=== PATIENT | male | born 1975 | race Caucasian/White ===

== ENCOUNTER 2024-04-17 10:04 | Emergency (ER) | payer BC, SELFPAY ==
--- NOTE | ~2024-04-17 | CT_ITS ---
EXAMINATION: CT lumbar spine wo con DATE: 04/17/2024 10:40 INDICATION: Lumbago. Left-sided sciatica. TECHNIQUE: Computed tomography (CT) of the lumbar spine was performed without intravenous contrast. A utomated exposure control and iterative reconstruction technique were employed. The dose-length produ ct was 742.75 mGy-cm. COMPARISON: None FINDINGS: There is 3 degrees levocurvature of lumbar spine. There are chronic bilateral L2 pars defec ts. There is mild chronic anterior wedging of T11 and T12 vertebral bodies. There are Schmorl's nodes at multiple levels. There is moderately decreased disc height at L2-L3. The following disc levels ar e specifically discussed: L1-L2: The disc does not extend beyond the endplate margin. There is mild right and moderate left fac et joint osteoarthritis. There is no neural foraminal stenosis. There is no central canal stenosis. L2-L3: The disc is bulging. There is mild bilateral facet joint osteoarthritis. There is moderate matt ateral neural foraminal stenosis. There is mild central canal stenosis. L3-L4: The disc does not extend beyond the endplate margin. There is mild bilateral facet joint osteo arthritis. There is no neural foraminal stenosis. There is no central canal stenosis. L4-L5: The disc is bulging. There is mild bilateral facet joint osteoarthritis. There is mild bilater al neural foraminal stenosis. There is mild central canal stenosis. L5-S1: The disc is bulging. There is mild bilateral facet joint osteoarthritis. There is mild bilater al neural foraminal stenosis. There is mild central canal stenosis. IMPRESSION: 1. Moderate lumbar spondylosis. 2. Chronic bilateral L2 pars defects. Reviewed, dictated and finalized at location A. RE CUTTER
--- NOTE | 2024-04-17 10:10 | ED.BACK ---
HPI - Back Pain/Injury General Chief Complaint: Back Pain/Injury Stated Complaint: back pain Time Seen by Provider: 04/17/24 10:10 Source: patient Mode of arrival: wheelchair Limitations: no limitations History of Present Illness HPI Narrative: 48-year-old male with a history of back surgeries/ diskectomy x2 in 2018presents to the ED with the -- low back pain radiating down his left lower extremity. He has had chronic back pain but this got worse since 04/02/2024. Is scheduled to have an MRI on May 06, 2024. no bladder or bowel involvement. -- Paresthesias of his left lower extremity. -- Patient is unable to ambulate MD elicited complaint: back pain Pertinent past history: prior back pain Onset (ago): day(s) ( 15 days) Timing: intermittent Severity: severe Similar Symptoms Previously: Yes Quality: aching Location: lumbar spine Radiation: left upper leg and left leg below the knee Exacerbating factors: movement Relieving factors: immobilization Context: while lifting, turning/twisting and bending Associated symptoms: denies other symptoms, numbness and difficulty walking Work related injury: No Related Data Allergies Allergy/AdvReac Type Severity Reaction Status Date / Time tramadol AdvReac Mild Nausea Verified 04/17/24 10:13 Review of Systems Review of Systems: All systems reviewed & are unremarkable except as noted in HPI and below Constitutional: Constitutional: Reports as per HPI and Reports no additional constitutional complaints Eyes: Eyes: Reports as per HPI and Reports no additional eye complaints ENT: Reports system reviewed and no additional complaints, except as documented and Reports as per HPI Cardiovascular: Cardiovascular: Reports as per HPI and Reports no additional cardiovascular complaints Respiratory: Respiratory: Reports as per HPI and Reports no additional respiratory complaints Gastrointestinal: Gastrointestinal: Reports as per HPI and Reports no additional gastrointestinal complaints Genitourinary: Genitourinary: Reports no additional male genitourinary complaints and Reports as per HPI Musculoskeletal: Musculoskeletal: Reports no additional musculoskeletal complaints, Reports as per HPI and Reports myalgias Integumentary/Breasts: Skin/Breast: Reports system reviewed and no additional complaints, except as docu and Reports as per HPI Neurologic: Reports system reviewed and no additional complaints, except as documented and Reports as per HPI Psychiatric: Psychiatric: Reports no additional psychiatric complaints and Reports as per HPI Endocrine: Endocrine: Reports no additional endocrine complaints and Reports as per HPI Hematologic/Lymphatic: Hematologic/Lymphatic: Reports no additional hematologic/lymphatic complaints and Reports as per HPI Allergic/Immunologic: Allergic/Immunologic: Reports no additional allergic/immunologic complaints and Reports as per HPI [facility] Past Medical History Medical History Chronic low back pain Surgical History Surgical History Previous back surgery Exam Narrative: afebrile Const: General: ill appearing Orientation/consciousness: patient oriented x3 Limitations: no limitations HENMT: Head: normal to inspection Ears: external ears normal Face/Nose/Sinus: Normal external nose present Face and sinus: normal facial exam Mouth: Yes Normal oral and palatal mucosa present Throat: posterior oropharynx normal Eyes: Conjunctivae: conjunctivae normal Pupils: Equal, round and reactive pupils present EOM: EOMs intact bilaterally Direct Ophthalmoscopy: no photophobia Neck: Neck: normal visual inspection and no lymphadenopathy Chest: Chest palpation & inspection: normal inspection of the chest Resp: Effort & Inspection: normal respiratory effort Auscultation: clear to auscultation bilaterally Cardio: Rate: regular rate Rhythm: regular rhythm GI: Auscultation: normal bowel sounds Other: no tenderness/ rigidity /rebound. : General: Yes no CVA tenderness Back/Spine/Pelvis: Back: no CVA tenderness Other: No lumbar spinal tenderness. Straight-leg raising test is positive on the left side. No sensory loss unable to elicit deep tendon reflexes on the left lower extremity. Skin: General skin exam: normal color Rashes: no rashes Wounds: no wounds Neuro: General: patient oriented x3, moves all extremities, no meningeal signs, no focal motor deficits and CN's II-XI intact bilaterally Cranial nerves: Yes Nystagmus not present Speech: normal speech Extrem: General: normal to inspection and no clubbing, cyanosis or edema Psych: Mental Status: mental status grossly normal Affect: normal affect Attitude: cooperative Course Course Emergency Course: Worsening of chronic low back pain-- patient had a CT of the lumbar spine which revealed moderate lumbar spondylosis. The patient has Schmorls nodes at multiple levels with decrease in height of L2/L3. Patient is also noted to have wedging of T11 and L2. Minimal spinal/foraminal stenosis. Bilateral L2 pars defect Vital Signs Vital signs: Vital Signs Temperature 36.9 C 04/17/24 10:13 Pulse Rate 80 04/17/24 10:13 Respiratory Rate 18 04/17/24 10:13 Blood Pressure 132/97 H 04/17/24 10:13 Pulse Oximetry 99 04/17/24 10:13 Oxygen Delivery Room Air 04/17/24 10:13 Temperature 36.9 C 04/17/24 10:13 Pulse Rate 80 04/17/24 10:13 Respiratory Rate 18 04/17/24 10:13 Blood Pressure 132/97 H 04/17/24 10:13 Pulse Oximetry 99 04/17/24 10:13 Oxygen Delivery Room Air 04/17/24 10:13 MDM - Back Pain/Injury MDM Narrative Medical decision making narrative: chronic low back pain lumbar spondylosis Differential Diagnosis Differential diagnosis: Likely lumbar radiculopathy, sciatica and strain of lumbar region Lab Data Attestation: I reviewed the patient's lab results. Discharge Plan Discharge Clinical Impression: Chronic low back pain, Lumbar radiculopathy Patient Disposition: Home, Self-Care Condition: Stable Instructions: Antibiotic Form, Chronic Back Pain (DC) Additional Instructions: follow-up with your back surgeon Patient Language: Palestinian Prescriptions: New hydrocodone-acetaminophen 5-325 mg tablet 1 tablet PO Q8H PRN (Reason: pain) Qty: 10 0RF Follow-up/Referrals: Jay Jeffrey M.D. [Primary Care Provider] - Time of Disposition: 11:05
[2024-04-17 10:13] VITALS: BP 132/97; PULSE 80; RESP 18; TEMP 36.9; O2SAT 99
[2024-04-17] MEDS: ONDANSETRON HCL ODT 4 MG TABLET PO (10:25)
[2024-04-17] MEDS: HYDROmorphone HCL INJ (*CRX) 2 MG/ML VIAL 1 MG IM (10:26)
[2024-04-17 11:10] VITALS: BP 128/88; PULSE 72; RESP 18; TEMP 36.7; O2SAT 99
--- OUTSIDE RECORDS SUMMARY | 2024-04-17 11:35 | XMS_ITS | Clinical Summary ---
Author Organization [facility] Address [facility] [place] [address] Care Team Providers Care Farm Facility Manager Name Role Phone Jay Jeffrey MD Primary Care Provider Flores Sweeney MD Unavailable [phone] Allergies Active Allergy Reactions Criticality Noted Date Comments Lisinopril-Hydrochlorothiazide Cough 07/31 Tramadol Nausea Only 09/14/2017 Medications sertraline (ZOLOFT) 50 MG tablet Take 100 mg by mouth daily. Active candesartan 32 MG tabletIndications:H ypertension Take 32 mg by mouth daily. Indications: High Blood Pressure Disorder Active metFORMIN 500 MG tablet 500 mg 2 (two) times daily with meals. 0 Active atorvastatin (LIPITOR) 20 MG tablet Take 20 mg by mouth daily. Active pantoprazole EC (PROTONIX) 40 MG tablet Take 40 mg by mouth daily. Active ondansetron (ZOFRAN-ODT) 4 MG disintegrating tablet Take 1 tablet (4 mg total) by mouth every 8 (eight) hours as needed for Nausea. 20 tablet 4 Active Active Problems Problem Noted Date Diagnosed Date Chest pain 01/19/2022 Left leg pain 09/18/2020 Left foot pain 09/18/2020 Exercise-induced leg fatigue 09/18/2020 Torticollis, acquired 01/05/2018 Shoulder pain 01/03/2018 Resolved Problems Problem Noted Date Diagnosed Date Resolved Date Encounter for preventive health examination 09/13/2017 11/15/2019 Encounters Date Type Department Care Team Description 04/11/2024 11:24 AM CORE STACKER - 04/11/2024 11:59 PM CORE STACKER Hospital Encounter [facility] [address] [place] [address] aHrshal Brar, VIRGILIO Discharge Disposition: Home or Self Care (Routine Discharge) 04/11/2024 Travel from Last 3 Months Immunizations Name Administration Dates Next Due Dtp 09/22/1982,07/24/1979,02/08/1978 ,1977,1977 MMR 10/10/1991,01/26/1979 Opv 09/22/1982,07/24/1979,02/08/1978 ,1977,1977 Td 10/10/1991 Tdap (Generic) 10/08/2018 Family History Medical History Relation Comments Cancer Father Diabetes Father Heart Disease Father Heart Disease Mother Relation Status Comments Father Mother Social History Tobacco Use Types Packs/Day Years Used Date Smoking Tobacco: Former Smokeless Tobacco: Never Tobacco Cessation:Counseling Given: Not Answered Comments:quit 15 yrs ago Alcohol Use Standard Drinks/Week Comments Yes 0 (1 standard drink = 0.6 oz pur e alcohol) occasionally Sex and Gender Information Value Date Recorded Sex Assigned at Male 04/11/2024 11:22 AM CORE STACKER Legal Sex Male 8:57 PM CORE STACKER Gender Identity Not on file Sexual Orientation Not on file Last Filed Vital Signs Vital Sign Reading Time Taken Comments Blood Pressure 119/74 05/21/2023 2:30 PM CDT Pulse 62 05/21/2023 1:50 PM CDT Temperature 36.3 C (97.4 F) 05/21/2023 11:05 AM CDT Respiratory Rate 18 05/21/2023 1:50 PM CDT Oxygen Saturation 100% 05/21/2023 2:30 PM CDT Inhaled Oxygen Concentration - - Weight 92.4 kg (203 lb 12.8 oz) 024 11:05 AM CDT Height 182.9 cm (6') 05/21/2023 11:05 AM CDT Body Mass Index 27.64 05/21/2023 11:05 AM CDT Plan of Treatment Upcoming Encounters Date Type Department Care Team (Late st Contact Info) Description 04/23/2024 11:15 AM CORE STACKER Appointment [facility] [address] [place] [address] Carlito Melgar, PT [address] [place] [address] Health Maintenance Due Date Last Done Comments Colorectal Cancer Screening Colonoscopy (10 Years) 1977 Annual Physical 1980 Hepatitis C 07/21/1995 Hepatitis B Vaccines (1 of 3 - 19+ 3-dose series) 1996 COVID-19 Vaccine ( - 2023- season) 2023 Influenza Adult (#1) 2023 DTaP, Tdap and Td Vaccines (3 - Td or Tdap) 10/08/2028 10/08/2018, 10/10/1991, 09/22/1982, Additional history exists Meningococcal B Vaccine Aged Out No l onger eligible based on patient's age to complete this topic Meningococcal Vaccine Aged Out No joseph tricia eligible based on patient's age to complete this topic Pneumococcal Vaccine: Pediatrics (0 to 5 Years) and At-Risk Patients (6 to 64 Years) Aged Out No longer eligible based on patient's age to complete this topic RSV Immunizations Under 20 Months Aged Out No longer eligible based on patient's age to complete this topic Medical Devices Implanted Type Area Music Adapter Device Identifier Shelf Expiration Date Model / Serial / Lot 2.4mm/2.7mm Va Lcp First Mtp Fusion Plate Implanted:Qty: 1 on 10/15/2019 by Otf Kim DPM at [facility] Left: Foot SYNTHES .231 / / NA Screw Synthes 2.7 Va Locking S/Tap T8 14mm - [id number] Implanted:Qty: 2 on 10/15/2019 by Otf Kim DPM at [facility] Left: Foot SYNTHES .014 / / NA Screw Synthes 2.7 Va Locking S/Tap T8 18mm - [id number] Implanted:Qty: 3 on 10/15/2019 by Otf Kim DPM at [facility] Left: Foot SYNTHES .018 / / NA Screw Synthes 2.7 Va Locking S/Tap T8 12mm - [id number] Implanted:Qty: 1 on 10/15/2019 by Otf Kim DPM at [facility] Left: Foot SYNTHES ..012 / / NA Screw Synthes 2.7 Cortical Self Tap 26mm - [id number] Implanted:Qty: 1 on 10/15/2019 by Otf Kim DPM at [facility] Left: Foot SYNTHES 202.886 / / NA Explanted Type Area Music Adapter Device Identifier Shelf Expiration Date Model / Serial / Lot Wire Synthes 1.6 Compression 15mm X 150mm - [id number] Explanted:Qty: 1 on 10/15/2019 at [facility] Left: Foot SYNTHES .211.415 / / NA Wire Synthes 1.6 Compression 20mm X 150mm - [id number] Explanted:Qty: 1 on 10/15/2019 at [facility] Left: Foot SYNTHES .211.420 / / NA Drill Bit Synthes 2.0 Qc 140mm - [id number] Explanted:Qty: 1 on 10/15/2019 by Otf Kim DPM at [facility] Left: Foot SYNTHES 323.062 / / NA Procedures Procedure Name Priority Date/Time Associated Diagnosis Comments XR THOR SPINE+SWIMMERS Routine 04/11/2024 12:00 PM CORE STACKER Sciatica XR SI JOINTS Routine 04/11/2024 12:00 PM CORE STACKER Sciatica XR LUMB SPINE 3V Routine 04/11/2024 12:0 0 PM CORE STACKER Sciatica from Last 3 Months Results * XR THOR SPINE+SWIMMERS (04/11/2024 12:00 PM CORE STACKER) Anatomical Region Laterality Modality Spine Radiographic Skyla ging 04/12/2024 8:58 AM CORE STACKER Impressions 04/12/2024 8:59 AM CORE STACKER IMPRESSION: No acute findings. Minimal spondylosis. Ordered By: HARSHAL BRAR Interpreted By: Eric Blankenship MD, 04/12/2024 8:58 AM Narrative 04/12/2024 8:59 AM CORE STACKER [address] [place] [address] Examination: Thoracic spine Exam time: 1130 hours. Clinical history: Pain. Comparison: Two-view chest, 05/22/2023. Technique: AP, lateral and swimmer's views. Findings: There is no fracture or dislocation. Vertebral body height and alignment are satisfactory. The pedicles and spinous processes appear intact. Minor paravertebral osteophyte formation is noted. The paraspinous soft tissues are unremarkable. Granulomatous scarring in the thorax is again evident. Procedure Note Eric Blankenship MD - 04/12/[address] [place] [address] Examination: Thoracic spine Exam time: 1130 hours. Clinical history: Pain. Comparison: Two-view chest, 05/22/2023. Technique: AP, lateral and swimmer's views. Findings: There is no fracture or dislocation. Vertebral body height andalignment are satisfactory. The pedicles and spinous processes appearintact. Minor paravertebral osteophyte formation is noted. The paraspinoussoft tissues are unremarkable. Granulomatous scarring in the thorax isagain evident. IMPRESSION: No acute findings. Minimal spondylosis. Ordered By: HARSHAL BRAR Interpreted By: Eric Blankenship MD, 04/12/2024 8:58 AM Harshal Brar CHANNEL LIP STIFFENER [facility] Final Result * XR SI JOINTS (04/11/2024 12:00 PM CORE STACKER) Anatomical Region Laterality Modality Pelvis Radiographic Skyla ging 04/12/2024 9:12 AM CORE STACKER Impressions 04/12/2024 9:14 AM CORE STACKER IMPRESSION: No acute findings. Degenerative changes in the hips. Ordered By: HARSHAL BRAR Interpreted By: Eric Blankenship MD, 04/12/2024 9:12 AM Narrative 04/12/2024 9:14 AM CORE STACKER [address] [place] [address] Examination: SI joints. Exam time: 1138 hours. Clinical history: Pain. Sciatica. Comparison: None. Technique: AP and bilateral oblique views. Findings: No fracture or bony destructive process is identified. The SI joints appear intact and symmetric. The pubic symphysis appears intact. There are relatively symmetric [id number]-[id number] degenerative changes in the hips manifested by joint space narrowing and acetabular osteophyte formation. No other significant bone or joint abnormality is noted. No acute soft tissue abnormality. Procedure Note Eric Blankenship MD - 04/12/[address] [place] [address] Examination: SI joints. Exam time: 1138 hours. Clinical history: Pain. Sciatica. Comparison: None. Technique: AP and bilateral oblique views. Findings: No fracture or bony destructive process is identified. The SIjoints appear intact and symmetric. The pubic symphysis appears intact.There are relatively symmetric [id number]-[id number] degenerative changes inthe hips manifested by joint space narrowing and acetabular osteophyteformation. No other significant bone or joint abnormality is noted. Noacute soft tissue abnormality. IMPRESSION: No acute findings. Degenerative changes in the hips. Ordered By: HARSHAL BRAR Interpreted By: Eric Blankenship MD, 04/12/2024 9:12 AM Harshal Brar CHANNEL LIP ST[employer] Final Result * XR LUMB SPINE 3V (04/11/2024 12:00 PM CORE STACKER) Anatomical Region Laterality Modality Spine Radiographic Skyla ging 04/12/2024 9:09 AM CORE STACKER Impressions 04/12/2024 9:11 AM CORE STACKER IMPRESSION: No acute findings. Essentially stable spondylosis as described. Ordered By: HARSHAL BRAR Interpreted By: Eric Blankenship MD, 04/12/2024 9:09 AM Narrative 04/12/2024 9:11 AM CORE STACKER [address] [place] [address] Examination: Lumbar spine Exam time: 1131 hours. Clinical history: Low back pain with sciatica. Comparison: CT of the abdomen and pelvis, 03/29/2023. Technique: Upright AP, lateral and spot lateral views. Findings: There is no fracture or dislocation. The vertebral bodies are maintained normally in height. There is minimal anterolisthesis at L2-3 with weightbearing. Alignment is otherwise satisfactory. Allowing for the different modalities, there is stable disc space narrowing at L2-3 and L5-S1. The other intervertebral disc spaces are maintained normally in height. Mild paravertebral osteophyte formation is again evident, primarily at L2-3. Vacuum disc phenomenon at L2-3 again evident. Atherosclerotic calcification of the aorta is noted. The paraspinous soft tissues are otherwise unremarkable. Procedure Note Eric Blankenship MD - 04/12/[address] [place] [address] Examination: Lumbar spine Exam time: 1131 hours. Clinical history: Low back pain with sciatica. Comparison: CT of the abdomen and pelvis, 03/29/2023. Technique: Upright AP, lateral and spot lateral views. Findings: There is no fracture or dislocation. The vertebral bodies aremaintained normally in height. There is minimal anterolisthesis at L2-3with weightbearing. Alignment is otherwise satisfactory. Allowing for thedifferent modalities, there is stable disc space narrowing at L2-3 andL5-S1. The other intervertebral disc spaces are maintained normally inheight. Mild paravertebral osteophyte formation is again evident,primarily at L2-3. Vacuum disc phenomenon at L2-3 again evident.Atherosclerotic calcification of the aorta is noted. The paraspinous softtissues are otherwise unremarkable. IMPRESSION: No acute findings. Essentially stable spondylosis as described. Ordered By: HARSHAL BRAR Interpreted By: Eric Blankenship MD, 04/12/2024 9:09 AM Harshal Brar CH[employer] LIP ST[employer] Final Result from Last 3 Months Insurance [address] [place] [id number] [facility] [employer] [employer] Care Teams Farm Facility Manager Relationship Specialty Start Date End Date Jay Jeffrey MD [address] [place] [address] PCP - General FAMILY PRACTICE 03/06/19 [place] [address] Consulting Physician INTERVENTIONAL CARDIOLOGY 01/18/22
--- OUTSIDE RECORDS SUMMARY | 2024-04-17 11:35 | XMS_ITS | Encounter Summary ---
Author Organization [facility] Address [facility] [place] [address] Care Team Providers Care Sports Book Server Name Role Phone Jay Jeffrey MD Primary Care Provider Flores Sweeney MD Unavailable [phone] Encounter Details Date Type Department Care Team (Late st Contact Info) Description 02/10/2022 Hospital Orders Only [facility] Housekeeping Attendant Pre/Post [address] [place] [address] Flores Sweeney MD [address] [place] [address] Social History Tobacco Use Types Packs/Day Years Used Date Smoking Tobacco: Former Smokeless Tobacco: Never Comments:quit 15 yrs ago Alcohol Use Standard Drinks/Week Comments Yes 0 (1 standard drink = 0.6 oz pur e alcohol) occasionally Sex and Gender Information Value Date Recorded Sex Assigned at Male 04/11/2024 11:22 AM NETWORK DIRECTOR Legal Sex Male 8:57 PM NETWORK DIRECTOR Gender Identity Not on file Sexual Orientation Not on file COVID-19 Exposure Response Date Recorded In the last 10 days, have yo u been in contact with someone who was confirmed or suspected to have Coronavirus/COVID-19? No / Unsure 02/07/2022 10:14 AM NETWORK DIRECTOR documented as of this encounter Functional Status * RETIRED Are you deaf or do you have serious difficulty hearing Answer Date of Assessment Author Status No 10/15/2019 6:21 AM CDT Activ e documented as of this encounter Plan of Treatment Upcoming Encounters Date Type Department Care Team (Late st Contact Info) Description 04/23/2024 11:15 AM NETWORK DIRECTOR Appointment [facility] [address] [place] [address] Carlito Melgar, PT [address] [place], [place] [id number] documented as of this encounter Visit Diagnoses Not on filedocumented in this encounter Additional Health Concerns Infection Onset Date Last Indicated Resolved Time COVID-19 Rule Out 05/21/2023 05/21/2023 05/21/2023 12:15 PM CDT documented as of this encounter Care Teams Sports Book Server Relationship Specialty Start Date End Date Jay Jeffrey MD [address] [place] [id number] PCP - General FAMILY PRACTICE 03/06/19 Flores Sweeney MD [address] [place] [id number] Consulting Physician INTERVENTIONAL CARDIOLOGY 01/18/22 documented as of this encounter
--- OUTSIDE RECORDS SUMMARY | 2024-04-17 11:35 | XMS_ITS | Encounter Summary ---
Author Organization [facility] Address [address] [place] [address] Care Team Providers Care Agricultural Extension Officer Name Role Phone Jay Jeffrey MD Primary Care Provider [phone] Flores Sweeney MD Unavailable [phone] Encounter Details Date Type Department Care Team (Late Contact Info) Description 08/11/2018 Abstract [facility] CONVERSION [address] [place] [address] , Generic Conversion, Social History Tobacco Use Types Packs/Day Years Used Date Smoking Tobacco: Never Assessed Sex and Gender Information Value Date Recorded Sex Assigned at Male 04/11/2024 11:22 AM TRAFFIC LIEUTENANT Legal Sex Male 8:57 PM TRAFFIC LIEUTENANT Gender Identity Not on file Sexual Orientation Not on file documented as of this encounter Plan of Treatment Upcoming Encounters Date Type Department Care Team (Late Contact Info) Description 04/23/2024 11:15 AM TRAFFIC LIEUTENANT Appointment [facility] [address] [place] [address] Carlito Melagr, PT [address] [place] [address] documented as of this encounter Visit Diagnoses Not on filedocumented in this encounter Additional Health Concerns Infection Onset Date Last Indicated Resolved Time COVID-19 Rule Out 10/12/2019 10/12/2019 10/14/2019 3:49 PM CDT COVID-19 Rule Out 05/21/2023 05/21/2023 05/21/2023 12:15 PM CDT documented as of this encounter Care Teams Agricultural Extension Officer Relationship Specialty Start Date End Date Jay Jeffrey MD [address] [place] [id number] PCP - General FAMILY PRACTICE 03/06/19 Flores Sweeney MD [address] [place] [address] Consulting Physician INTERVENTIONAL CARDIOLOGY 01/18/22 documented as of this encounter
== END 2024-04-17 11:10 | disposition home or self-care (01) ==
PROVIDERS: Emergency Provider Internal Medicine Critical Care Medicine; PCP Family Medicine
DX: M54.16 Radiculopathy, lumbar region (principal); G89.29 Other chronic pain
CPT/HCPCS: 72131; 96372; 99284; A9270; J1171

== ENCOUNTER 2024-05-14 12:50 | Emergency (ER) | payer BC, SELFPAY ==
[2024-05-14] VITALS (19 sets, daily range): BP systolic 115–144; BP diastolic 67–95; PULSE 71–92; RESP 16–20; TEMP 36.6–36.8; O2SAT 93–100
--- NOTE | ~2024-05-14 | CT_ITS ---
CLINICAL INDICATION: Nausea, vomiting, headache, dizziness, chills, and runny nose COMPARISON: 03/19/2017. TECHNIQUE: Multiple contiguous axial images of the abdomen and pelvis were performed following the ad ministration of with 100 mL Omnipaque-350 intravenous contrast The dose-length product (DLP) was 882.37 mGy-cm. Automated exposure control and iterative reconstruction technique were employed. FINDINGS/OBSERVATIONS: Visualized lower thorax: Trace right basilar atelectasis. The remainder of the lungs are clear. The heart is of normal size, without pericardial effusion. Small hiatal hernia is present. Liver: The liver demonstrates homogeneous enhancement and is not enlarged measuring 17 cm in longitudinal di mension. Gallbladder and biliary system: The gallbladder is only minimally distended, and otherwise unremarkable. Pancreas: The pancreas enhances homogeneously without ductal dilatation. Spleen: The spleen enhances homogeneously and is not enlarged measuring 9.8 cm in longitudinal dimension. Kidneys: The bilateral kidneys enhance symmetrically without hydronephrosis or renal calculi. Adrenal glands: Unremarkable. Gastrointestinal tract: Trace fecal stasis within the colon. Appendix: The air-filled appendix is of normal caliber (axial series, images 125 through 131). Vasculature: Unremarkable. Lymph nodes: No pathologically enlarged or morphologically suspicious lymph nodes within the retroperitoneum or at the root of the mesentery. Pelvic structures: The bladder is distended, and otherwise unremarkable. The prostate gland is not enlarged. Body wall and musculoskeletal: Small fat-containing umbilical hernia. Degenerative disease is identified at the level of L2/L3, with osteophyte formation, disc space narro wing, endplate changes and vacuum phenomena. IMPRESSION: Degenerative disease, without additional acute abnormality. Reviewed, dictated and finalized at location A.
[2024-05-14 13:02] LABS: Glucose Point of Care 105 mg/dl (65-105)
--- NOTE | 2024-05-14 13:08 | ED.GENADULT ---
HPI - General Adult General Chief complaint: Upper Respiratory Infection Stated complaint: dizzy Time Seen by Provider: 05/14/24 13:08 Source: patient Mode of arrival: ambulatory Limitations: no limitations History of Present Illness HPI narrative: 48 years old white male came to the ED by private car complaining of not feeling well, headache, nausea, vomiting on average 8 times a day for the last 3 days, I upper abdominal pain with vomiting. Patient denies sick contact. History of hypertension. Related Data Allergies Allergy/AdvReac Type Severity Reaction Status Date / Time tramadol AdvReac Mild Nausea Verified 05/14/24 12:57 Review of Systems Review of Systems: All systems reviewed & are unremarkable except as noted in HPI and below PMFSH Past Medical History Medical History Chronic low back pain Surgical History Surgical History Previous back surgery Exam Narrative: General appearance: Well-developed, well-nourished , hyperventilating Skin: Normal color Head: Normocephalic, nontraumatic Eyes: Clear conjunctiva ENT: Oropharynx normal, ears normal, nose normal Neck: Supple, nontender Chest and respiratory: Airway patent, no respiratory distress, no accessory muscle use Heart: Regular rate/rhythm Abdomen: Soft, nontender, no organomegaly, quiet bowel sounds Vascular: Normal peripheral pulses, normal capillary refill. Musculoskeletal: Normal range of motion, nontender back Neurologic: Alert and oriented ?3, SUPPLY CLERK is normal as tested, no gross motor deficit Course Vital Signs Vital signs: Vital Signs Temperature 36.6 C 05/14/24 12:52 Pulse Rate 92 05/14/24 12:52 Respiratory Rate 20 05/14/24 12:52 Blood Pressure 137/94 H 05/14/24 12:52 Pulse Oximetry 100 05/14/24 12:52 Oxygen Delivery Room Air 05/14/24 12:52 Temperature 36.6 C 05/14/24 12:52 Pulse Rate 92 05/14/24 12:52 Respiratory Rate 20 05/14/24 12:52 Blood Pressure 137/94 H 05/14/24 12:52 Pulse Oximetry 100 05/14/24 13:05 Oxygen Delivery Room Air 05/14/24 13:05 Medical Decision Making [facility] Narrative Medical decision making narrative: patient presents with viral syndrome like symptoms Vital signs are stable Physical examination showing patient with dry heaving and mild upper abdominal tenderness Differential diagnosis include viral gastroenteritis, electrolyte imbalance, dehydration, less likely intra-abdominal pathology Blood workup today includes CBC, CMP, lipase showed WBC 12.4Otherwise within normal limit Respiratory panel negative for COVID flu RSV CT abdomen and pelvis with IV contrast showed no acute abnormalities Vital Signs Vital Signs: Vital Signs Temperature 36.6 C 05/14/24 12:52 Pulse Rate 92 05/14/24 12:52 Respiratory Rate 20 05/14/24 12:52 Blood Pressure 137/94 H 05/14/24 12:52 Pulse Oximetry 100 05/14/24 12:52 Oxygen Delivery Room Air 05/14/24 12:52 Temperature 36.6 C 05/14/24 12:52 Pulse Rate 92 05/14/24 12:52 Respiratory Rate 05/14/24 12:52 Blood Pressure 137/94 H 05/14/24 12:52 Pulse Oximetry 100 05/14/24 13:05 Oxygen Delivery Room Air 05/14/24 13:05 Lab Data 05/14/24 13:26 05/14/24 13:26 Labs: Lab Results 05/14/24 05/14/24 05/14/24 Range/Units 12:57 12:58 13:26 WBC 12.4 H (4.8-10.8) K/mm3 RBC 5.46 (4.70-6.10) M/mm3 Hgb 15.1 (14.0-18.0) g/dL Hct 45.3 (40.0-54.0) % MCV 83.0 (78.0-102.0) fL MCH 27.7 (27.0-31.0) pg MCHC 33.3 (32-36) g/dL RDW 12.6 (11.6-14.4) % Plt Count 245 (150-420) K/mm3 MPV 9.5 (8.7-11.0) fl Immature Gran % (Auto) 0.5 H (0.0-0.0) % Neut % (Auto) 78.5 H (50.0-70.0) % Lymph % (Auto) 11.9 L (18.0-42.0) % [place] % (Auto) 8.5 (2.0-11.0) % Eos % (Auto) 0.1 L (1.0-6.0) % Baso % (Auto) 0.5 (0.0-1.0) % Lymph # (Auto) 1.47 (1.10-4.50) K/mm3 [place] # (Auto) 1.05 H (0.10-0.90) K/mm3 Eos # (Auto) 0.01 L (0.02-0.50) K/mm3 Baso # (Auto) 0.06 (0.00-0.10) K/mm3 Abs Immat Gran (auto) 0.06 H (0.00-0.00) K/mm3 Absolute Neuts (auto) 9.75 H (1.70-7.20) K/mm3 Absolute Nucleated RBC 0.00 (0.00-0.00) K/mm3 Nucleated RBC % 0.0 (0-0.0) % Sodium 135 L (136-145) mmol/L Potassium 3.7 (3.5-5.1) mmol/L Chloride 99 (98-108) mmol/L Carbon Dioxide 25 (21-32) mmol/L Anion Gap 11 (4-12) mmol/L BUN 14 (7-18) mg/dL Creatinine 1.17 (0.70-1.30) mg/dL Estim Creat Clear Calc 77 ml/min Estimated GFR > 60 (59 - ) Glucose 112 H (70-99) mg/dL POC Capillary Glucose 105 (65-105) mg/dl Calculated Osmolality 281 L (285-295) mOsm/kg Calcium 9.3 (8.5-10.1) mg/dL Total Bilirubin 0.9 (0.00-1.00) mg/dL AST 13 L (15-37) U/L ALT 38 (16-63) U/L Alkaline Phosphatase 87 (46-116) U/L Total Protein 7.4 (6.4-8.2) g/dL Albumin 3.5 (3.4-5.0) g/dL Lipase 18 (16-77) U/L Influenza A (RT-PCR) Negative (Negative) Influenza B (RT-PCR) Negative (Negative) RSV (RT-PCR) Negative (Negative) SARS-CoV-2 RNA (RT-PCR) Negative (Negative) Imaging Data Radiologist's impression: Impressions Abdomen/Pelvis CT 05/14/24 14:43 IMPRESSION: Degenerative disease, without additional acute abnormality. Critical Care Time Critical Care Time Critical Care Time: No Discharge Plan Discharge Clinical Impression: Gastroenteritis Patient Disposition: Home, Self-Care Condition: Stable Instructions: Gastroenteritis (DC) Additional Instructions: Return if symptoms are worsening , call your family physician for appointment, take Tylenol as as needed for aches and pain, continue home medications. Patient Language: Lithuanian Prescriptions: New ondansetron HCl 4 mg tablet 4 mg PO Q4H Qty: 10 0RF Rx Instructions: 1st dose 1-2 hr before radiation No Action hydrocodone-acetaminophen 5-325 mg tablet 1 tablet PO Q8H PRN (Reason: pain) Qty: 10 0RF Follow-up/Referrals: Jay Jeffrey M.D. [Primary Care Provider] - Stand Alone Forms: Work/School Release IP
[2024-05-14] MEDS: ONDANSETRON INJ 4 MG/2 ML VIAL 8 MG IV PUSH (13:18)
[2024-05-14] MEDS: SODIUM CHLORIDE 0.9% IV 1,000 ML 999 ML IV CONT (13:18)
[2024-05-14 13:32] LABS: Basophils Absolute Auto 0.06 K/mm3 (0.00-0.10); Basophils Percent Auto 0.5 % (0.0-1.0); Eosinophils Absolute Auto 0.01 K/mm3 (0.02-0.50); Eosinophils Percent Auto 0.1 % (1.0-6.0); Hematocrit 45.3 % (40.0-54.0); Hemoglobin 15.1 g/dL (14.0-18.0); Immature Granulocyte Absolute 0.06 K/mm3 (0.00-0.00); Immature Granulocyte Percent A 0.5 % (0.0-0.0); Lymphocytes Absolute Auto 1.47 K/mm3 (1.10-4.50); Lymphocytes Percent Auto 11.9 % (18.0-42.0); Mean Corpuscular HGB Conc 33.3 g/dL (32-36); Mean Corpuscular Hemoglobin 27.7 pg (27.0-31.0); Mean Platelet Volume 9.5 fl (8.7-11.0); Monocytes Absolute Auto 1.05 K/mm3 (0.10-0.90); Monocytes Percent Auto 8.5 % (2.0-11.0); Neutrophils Absolute Auto 9.75 K/mm3 (1.70-7.20); Neutrophils Percent Auto 78.5 % (50.0-70.0); Platelet Count Result 245 K/mm3 (150-420); Red Blood Count 5.46 M/mm3 (4.70-6.10); Red Cell Distribution Width 12.6 % (11.6-14.4); White Blood Count 12.4 K/mm3 (4.8-10.8)
[2024-05-14 13:36] LABS: Influenza A QL RT-PCR Negative (Negative); Influenza B QL RT-PCR Negative (Negative); RSV RNA, RT-PCR Negative (Negative); SARS-CoV-2 RNA PCR Negative (Negative)
[2024-05-14 13:47] LABS: Alanine Aminotransferase 38 U/L (16-63); Albumin Level 3.5 g/dL (3.4-5.0); Alkaline Phosphatase 87 U/L (46-116); Anion Gap 11 mmol/L (4-12); Aspartate Amino Transferase 13 U/L (15-37); Bilirubin,Total 0.9 mg/dL (0.00-1.00); Blood Urea Nitrogen 14 mg/dL (7-18); Calcium 9.3 mg/dL (8.5-10.1); Carbon Dioxide 25 mmol/L (21-32); Chloride 99 mmol/L (98-108); Estimated CRCL calculation 77 ml/min; Estimated Glomerular Filt Rate > 60; Glucose 112 mg/dL (70-99); Lipase 18 U/L (16-77); Osmolality Calculated 281 mOsm/kg (285-295); Potassium 3.7 mmol/L (3.5-5.1); Sodium 135 mmol/L (136-145); Total Protein 7.4 g/dL (6.4-8.2)
--- OUTSIDE RECORDS SUMMARY | 2024-05-14 14:06 | XMS_ITS | Clinical Summary ---
Author Organization [facility] Address [address] [place] [id number] Care Team Providers Care Financial Services Rep Name Role Phone Jay Jeffrey MD Primary Care Provider [phone] Solomon Allen MD Unavailable Allergies Active Allergy Reactions Criticality Noted Date Comments Tramadol Nausea only Low 05/06/2024 Medications pregabalin (LYRICA) 50 mg capsule Take 1 capsule (50 mg total) by mouth 3 (three) times a day 90 capsule 5 5 11/03/19 25 Active traMADoL (ULTRAM) 50 mg tablet Take 1 tablet (50 mg total) by mouth every 6 (six) hours 05/07/19 25 Discontinu ed(Therapy completed) Active Problems Problem Noted Date Diagnosed Date Lumbar disc herniation with radiculopathy 2024 Encounters Date Type Department Care Team Description 05/06/2024 10:00 AM APARTMENT MANAGER - 05/06/2024 11:59 PM APARTMENT MANAGER Hospital Encounter [facility] Diag Imaging [address] [place] [id number] Spondylolisthesis of lumbar region; Other spondylosis with radiculopathy, lumbar region Discharge Disposition: Discharge to home or self care 05/06/2024 9:30 AM APARTMENT MANAGER Office Visit [facility] [address] [place] [address], [address] [place] [address] Bert Whitfield PA Lumbar disc herniation with radiculopathy (Primary Dx); Spondylolisthesis of lumbar region; Other spondylosis with radiculopathy, lumbar region 04/23/2024 Ancillary Procedure [facility] 04/11/2024 - 04/11/2024 11:59 PM APARTMENT MANAGER Hospital Encounter [facility] [address] [place] [address] Discharge Disposition: Discharge to home or self care from Last 3 Months Surgical History Surgery Date Site/Laterality Comments LUMBAR FUSION 03/06/2013 - 03/05/2014 N/A Medical History Medical History Date Comments Hypertension Social History Tobacco Use Types Packs/Day Years Used Date Smoking Tobacco: Never Assessed Sex and Gender Information Value Date Recorded Sex Assigned at Not on file Legal Sex Male 11:00 AM APARTMENT MANAGER Gender Identity Not on file Sexual Orientation Not on file Obstetrics History Last Filed Vital Signs Vital Sign Reading Time Taken Comments Blood Pressure 134/94 05/06/2024 9:16 AM APARTMENT MANAGER Pulse 74 05/06/2024 9:16 AM APARTMENT MANAGER Temperature - - Respiratory Rate - - Oxygen Saturation 100% 05/06/2024 9:16 AM APARTMENT MANAGER Inhaled Oxygen Concentration - - Weight 95.5 kg (210 lb 9.6 oz) 05/06/2024 9:16 A M APARTMENT MANAGER Height 182.9 cm (6') 05/06/2024 9:16 AM APARTMENT MANAGER Body Mass Index 28.56 05/06/2024 9:16 AM APARTMENT MANAGER Plan of Treatment Health Maintenance Due Date Last Done Comments Colon Cancer Screening-Colonoscopy 1977 Depression Screening 1977 Hepatitis C Screening 1977 Hepatitis B Screening 07/21/1995 Regular Well Visit/Exam 18-64 07/21/1995 Influenza Vaccine (#1) 2023 DTaP/Tdap/Td Vaccine (7 - Td or Tdap) 10/08/2028 10/08/2018, 10/10/1991, 09/22/1982, Additional history exists HPV Vaccines Aged Out No longer eligi ble based on patient's age to complete this topic Pneumococcal vaccine <65 Aged Out No longer eligible based on patient's age to complete this topic Procedures Procedure Name Priority Date/Time Associated Diagnosis Comments XR LUMBAR SPINE ROUTINE W FLEX EXT Schedule Routine, Read Routine (OP Routine) 05/06/2024 10:16 AM APARTMENT MANAGER Spondylolisthesis of lumbar region Other spondylosis with radiculopathy, lumbar region XR SCOLIOSIS AP LAT Schedule Routine, Read Routine (OP Routine) 05/06/2024 10:16 AM APARTMENT MANAGER Spondylolisthesis of lumbar region Other spondylosis with radiculopathy, lumbar region MSK MR OUTSIDE REFERENCE Routine 04/23/2024 12:00 AM APARTMENT MANAGER MSK MR OUTSIDE REFERENCE Routine 04/11/2024 12:00 AM APARTMENT MANAGER from Last 3 Months Results * XR Spine Lumbar Incl Bending Views 6 or More Views (05/06/2024 10:16 AM APARTMENT MANAGER) Anatomical Region Laterality Modality L-spine N/A Computed Radiogr aphy 05/06/2024 2:58 PM APARTMENT MANAGER Narrative 05/06/2024 3:02 PM APARTMENT MANAGER EXAM DESCRIPTION: XR SCOLIOSIS AP AND LATERAL; XR SPINE LUMBAR INCL BENDING VIEWS 6 OR MORE VIEWS REASON FOR STUDY: lumbar pain Shooting pain radiating down both legs since 03/29/24, Hx lumbar surgery done 2014 FINDINGS: Two views thoracolumbar spine and subsequently 6 views lumbar spine submitted without comparison. There is mild long segment levocurvature of the upper thoracic spine. Minimal dextrocurvature of the upper lumbar spine. Multilevel thoracic degenerative disc disease is present. Pulmonary granulomas are noted. No acute fracture. Grade 1 anterolisthesis of L2 on L3 is present with moderate degenerative disc disease and facet osteoarthritis. IMPRESSION: Minimal curvature of the thoracolumbar spine. Mild multilevel thoracic degenerative disc disease. Grade 1 anterolisthesis of L2 on L3 with moderate degenerative disc disease and facet osteoarthritis. THIS IS AN ELECTRONICALLY VERIFIED FINAL REPORT 05/06/2024 3:02 PM - Electronically signed by Evan Viveros M.D. T: Report ID: [id number] Reading Location: [id number] Procedure Note Evan Viveros MD - 05/06/2024 EXAM DESCRIPTION: XR SCOLIOSIS AP AND LATERAL; XR SPINE LUMBAR INCL BENDING VIEWS 6 OR MORE VIEWS REASON FOR STUDY: lumbar pain Shooting pain radiating down both legs since 03/29/24, Hx lumbar surgerydone 2014 FINDINGS: Two views thoracolumbar spine and subsequently 6 views lumbarspine submitted without comparison. There is mild long segment levocurvature of the upper thoracic spine.Minimal dextrocurvature of the upper lumbar spine. Multilevel thoracicdegenerative disc disease is present. Pulmonary granulomas are noted. No acutefracture. Grade 1 anterolisthesis of L2 on L3 is present with moderate degenerativedisc disease and facet osteoarthritis. IMPRESSION: Minimal curvature of the thoracolumbar spine. Mild multilevel thoracic degenerative disc disease. Grade 1 anterolisthesis of L2 on L3 with moderate degenerative discdisease and facet osteoarthritis. THIS IS AN ELECTRONICALLY VERIFIED FINAL REPORT 05/06/2024 3:02 PM - Electronically signed by Evan FLORES T: Report ID: [id number] Reading Location: [place] [address] us Bert [facility] IMG XR PROCEDURES Final Re sult * XR Scoliosis 2 or 3 Views (05/06/2024 10:16 AM APARTMENT MANAGER) Anatomical Region Laterality Modality Spine N/A Computed Radiogr aphy 05/06/2024 2:58 PM APARTMENT MANAGER Narrative 05/06/2024 3:02 PM APARTMENT MANAGER EXAM DESCRIPTION: XR SCOLIOSIS AP AND LATERAL; XR SPINE LUMBAR INCL BENDING VIEWS 6 OR MORE VIEWS REASON FOR STUDY: lumbar pain Shooting pain radiating down both legs since 03/29/24, Hx lumbar surgery done 2014 FINDINGS: Two views thoracolumbar spine and subsequently 6 views lumbar spine submitted without comparison. There is mild long segment levocurvature of the upper thoracic spine. Minimal dextrocurvature of the upper lumbar spine. Multilevel thoracic degenerative disc disease is present. Pulmonary granulomas are noted. No acute fracture. Grade 1 anterolisthesis of L2 on L3 is present with moderate degenerative disc disease and facet osteoarthritis. IMPRESSION: Minimal curvature of the thoracolumbar spine. Mild multilevel thoracic degenerative disc disease. Grade 1 anterolisthesis of L2 on L3 with moderate degenerative disc disease and facet osteoarthritis. THIS IS AN ELECTRONICALLY VERIFIED FINAL REPORT 05/06/2024 3:02 PM - Electronically signed by Evan Viveros M.D. T: Report ID: [id number] Reading Location: [id number] Procedure Note Evan Viveros MD - 05/06/2024 EXAM DESCRIPTION: XR SCOLIOSIS AP AND LATERAL; XR SPINE LUMBAR INCL BENDING VIEWS 6 OR MORE VIEWS REASON FOR STUDY: lumbar pain Shooting pain radiating down both legs since 03/29/24, Hx lumbar surgerydone 2014 FINDINGS: Two views thoracolumbar spine and subsequently 6 views lumbarspine submitted without comparison. There is mild long segment levocurvature of the upper thoracic spine.Minimal dextrocurvature of the upper lumbar spine. Multilevel thoracicdegenerative disc disease is present. Pulmonary granulomas are noted. No acutefracture. Grade 1 anterolisthesis of L2 on L3 is present with moderate degenerativedisc disease and facet osteoarthritis. IMPRESSION: Minimal curvature of the thoracolumbar spine. Mild multilevel thoracic degenerative disc disease. Grade 1 anterolisthesis of L2 on L3 with moderate degenerative discdisease and facet osteoarthritis. THIS IS AN ELECTRONICALLY VERIFIED FINAL REPORT 05/06/2024 3:02 PM - Electronically signed by Evan Viveros M.D. T: Report ID: [id number] Reading Location: [id number] Bert [facility] IMG XR PROCEDURES Final Re sult * MSK MR Outside Reference (04/23/2024 12:00 AM APARTMENT MANAGER) Narrative [facility] - 05/06/2024 9:11 AM APARTMENT MANAGER This order has been auto-finalized and does not contain a result. us Provider Transcribed Order IMG MRI PROCEDURES Fi nal Result [facility] * MSK MR Outside Reference (04/11/2024 12:00 AM APARTMENT MANAGER) Narrative [facility] - 05/06/2024 8:54 AM APARTMENT MANAGER This order has been auto-finalized and does not contain a result. us Provider Transcribed Order IMG MRI PROCEDURES Fi nal Result [facility] from Last 3 Months Insurance [employer] Care Teams Financial Services Rep Relationship Specialty Start Date End Date Jay Jeffrey MD [address] [place] [address] PCP - General Family Medicine 05/06/24 [place] [id number] [facility] [address] [place] [address] Referring Physician Pain Management 05/06/24
--- OUTSIDE RECORDS SUMMARY | 2024-05-14 14:06 | XMS_ITS | Clinical Summary ---
Author Organization [facility] Address [facility] [place] [address] Care Team Providers Care Bulk Materials Handling Plant Operator Name Role Phone Jay Jeffrey MD Primary Care Provider Flores Sweeney MD Unavailable [phone] Allergies Active Allergy Reactions Criticality Noted Date [...] Encounters Date Type Department Care Team Description 04/23/2024 7:56 AM GRAB OPERATOR - 04/23/2024 11:59 PM GRAB OPERATOR Hospital Encounter [facility] [address] [place] [address] Efra Shine, VIRGILIO Discharge Disposition: Home or Self Care (Routine Discharge) 04/23/2024 Travel 04/11/2024 11:24 AM GRAB OPERATOR - 04/11/2024 11:59 PM GRAB OPERATOR Hospital Encounter [facility] [address] [place] [address] Harshal Brar, VIRGILIO Discharge Disposition: Home or Self [...] Sex Assigned at Male 04/11/2024 11:22 AM GRAB OPERATOR Legal Sex Male 8:57 PM GRAB OPERATOR Gender Identity Not on file Sexual Orientation [...] 05/21/2023 11:05 AM CDT Plan of Treatment Health Maintenance Due Date Last Done Comments Colorectal Cancer Screening Colonoscopy (10 Years) 1977 Annual Physical 1980 Hepatitis C 07/21/1995 Hepatitis B Vaccines (1 of 3 - 19+ 3-dose series) 1996 COVID-19 Vaccine (2023-25 season) 2023 Influenza Adult (#1) 2023 DTaP, [...] this topic Medical Devices Implanted Type Area Superintendent Renting Managing Device Identifier Shelf Expiration Date Model / Serial / Lot 2.4mm/2.7mm Va Lcp First Mtp Fusion Plate Implanted:Qty: 1 on 10/15/2019 by Otf Kim DPM at [facility] Left: Foot SYNTHES .231 / / NA Screw Synthes 2.7 Va Locking S/Tap T8 14mm - [id number] Implanted:Qty: 2 on 10/15/2019 by Otf Kim DPM at [facility] Left: Foot SYNTHES .014 / / NA Screw Synthes 2.7 Va Locking S/Tap T8 18mm - [id number] Implanted:Qty: 3 on 10/15/2019 by Otf Kim DPM at [facility] Left: Foot SYNTHES .018 / / NA Screw Synthes 2.7 Va Locking S/Tap T8 12mm - [id number] Implanted:Qty: 1 on 10/15/2019 by Otf Kim DPM at [facility] Left: Foot SYNTHES .012 / / NA Screw Synthes 2.7 Cortical Self Tap 26mm - [id number] Implanted:Qty: 1 on 10/15/2019 by Otf Kim DPM at [facility] Left: Foot SYNTHES 202.886 / / NA Explanted Type Area Superintendent Renting Managing Device Identifier Shelf Expiration Date Model / Serial / Lot Wire Synthes 1.6 Compression 15mm X 150mm - [id number] Explanted:Qty: 1 on 10/15/2019 at [facility] Left: Foot SYNTHES .415 / / NA Wire Synthes 1.6 Compression 20mm X 150mm - [id number] Explanted:Qty: 1 on 10/15/2019 at [facility] Left: Foot SYNTHES .420 / / NA Drill Bit Synthes 2.0 Qc 140mm - [id number] Explanted:Qty: 1 on 10/15/2019 by Otf Kim DPM at [facility] Left: Foot SYNTHES 323.062 / / NA Procedures Procedure Name Priority Date/Time Associated Diagnosis Comments MRI LUMB SPINE WO CON Routine 04/23/2024 8:33 AM GRAB OPERATOR Lumbago XR THOR SPINE+SWIMMERS Routine 04/11/2024 12:00 PM GRAB OPERATOR Sciatica XR SI JOINTS Routine 04/11/2024 12:00 PM GRAB OPERATOR Sciatica XR LUMB SPINE 3V Routine 04/11/2024 12:0 0 PM GRAB OPERATOR Sciatica from Last 3 Months Results * MRI LUMB SPINE WO CON (04/23/2024 8:33 AM GRAB OPERATOR) Anatomical Region Laterality Modality Spine Magnetic Resonan ce 04/23/2024 8:47 AM GRAB OPERATOR Impressions 04/23/2024 8:54 AM GRAB OPERATOR IMPRESSION: 1. At the L2/L3 level there is a grade 1 anterolisthesis and moderate type I endplate degenerative change, new compared to prior MRI 2013. No acute fracture or dislocation. 2. At the L2/L3 level there is mild central canal stenosis and effacement the lateral recesses, severe right neural foraminal stenosis and moderate left neural foraminal stenosis, mildly increased compared to the prior MRI of 2013. 3. Interval left hemilaminectomy at L5/S1. There is a small broad-based midline disc extrusion at L5/S1 causing slight effacement of ventral thecal sac and left lateral recess with contact of the traversing left S1 nerve root, similar to the prior MRI. There is enlargement of the traversing left S1 nerve root within the left lateral recess at this level, new compared to the prior MRI 2013, compatible with neuritis. Referred By: EFRA SHINE Interpreted By: Killian Benavides MD, 04/23/2024 8:47 AM Narrative 04/23/2024 8:54 AM GRAB OPERATOR [address] [place] [address] EXAMINATION:MRI of the lumbar spine without contrast 04/23/2024 INDICATION:Lumbago, lower back pain and left lower extremity pain TECHNIQUE: Multiplanar multi sequence MR imaging of the lumbar spine was performed without intravenous contrast. COMPARISON: Lumbar spine MRI 09/03/2013 FINDINGS:Last fully formed disc space is presumed represent L5/S1. Number spine is in anatomic alignment with preservation of vertebral body heights and disc spaces. Bone marrow signal is within normal limits with no acute fracture or dislocation. Modic type I degenerative changes are noted at the L2/L3, new compared to the prior MRI. There is a 3 mm anterolisthesis at L2/L3, new compared to the prior MRI. Conus terminates at the the mid T12 level and is unremarkable contour and signal. No paraspinal mass or fluid collection. Visualized abdominal aorta is unremarkable contour. There is a 0.8 cm T2 hyperintense lesion partially visualized within the right kidney, not fully characterized but statistically most likely reflecting cysts. T12/L1: Negative L1/L2: Negative L2/L3: Disc space narrowing with grade 1 anterolisthesis, disc bulging, facet arthropathy and a small broad-based midline disc extrusion causing mild central canal stenosis and effacement the lateral recesses, severe right neural foraminal stenosis and moderate left neural foraminal stenosis, increased compared to the prior MRI. The thecal sac measures 7 mm L3/L4: Negative L4/L5: Negative L5/S1: Disc space narrowing, disc desiccation in the small broad-based midline disc extrusion causing effacement of the ventral thecal sac and left lateral recess with contact of the traversing left S1 nerve root. There is mild enlargement of the left S1 nerve root within the lateral recess, new compared to prior MRI. There is been an interval left hemilaminectomy at this level. Evaluation for postoperative scarring is limited by the lack of intravenous contrast. Procedure Note Killian Benavides MD - 04/23/2024 [facility] [address] [place] [address] EXAMINATION:MRI of the lumbar spine without contrast 04/23/2024 INDICATION:Lumbago, lower back pain and left lower extremity pain TECHNIQUE: Multiplanar multi sequence MR imaging of the lumbar spine wasperformed without intravenous contrast. COMPARISON: Lumbar spine MRI 09/03/2013 FINDINGS:Last fully formed disc space is presumed represent L5/S1. Numberspine is in anatomic alignment with preservation of vertebral body heightsand disc spaces. Bone marrow signal is within normal limits with no acutefracture or dislocation. Modic type I degenerative changes are noted atthe L2/L3, new compared to the prior MRI. There is a 3 mm anterolisthesisat L2/L3, new compared to the prior MRI. Conus terminates at the the mid T12 level and is unremarkable contour andsignal. No paraspinal mass or fluid collection. Visualized abdominalaorta is unremarkable contour. There is a 0.8 cm T2 hyperintense lesionpartially visualized within the right kidney, not fully characterized butstatistically most likely reflecting cysts. T12/L1: Negative L1/L2: Negative L2/L3: Disc space narrowing with grade 1 anterolisthesis, disc bulging,facet arthropathy and a small broad-based midline disc extrusion causingmild central canal stenosis and effacement the lateral recesses, severeright neural foraminal stenosis and moderate left neural foraminalstenosis, increased compared to the prior MRI. The thecal sac measures 7mm L3/L4: Negative L4/L5: Negative L5/S1: Disc space narrowing, disc desiccation in the small broad-basedmidline disc extrusion causing effacement of the ventral thecal sac andleft lateral recess with contact of the traversing left S1 nerve root.There is mild enlargement of the left S1 nerve root within the lateralrecess, new compared to prior MRI. There is been an interval lefthemilaminectomy at this level. Evaluation for postoperative scarring islimited by the lack of intravenous contrast. IMPRESSION: 1. At the L2/L3 level there is a grade 1 anterolisthesis and moderatetype I endplate degenerative change, new compared to prior MRI 2014. Noacute fracture or dislocation. 2. At the L2/L3 level there is mild central canal stenosis and effacementthe lateral recesses, severe right neural foraminal stenosis and moderateleft neural foraminal stenosis, mildly increased compared to the prior MRIof 2014. 3. Interval left hemilaminectomy at L5/S1. There is a small broad-basedmidline disc extrusion at L5/S1 causing slight effacement of ventralthecal sac and left lateral recess with contact of the traversing left F2adszh root, similar to the prior MRI. There is enlargement of thetraversing left S1 nerve root within the left lateral recess at thislevel, new compared to the prior MRI 2014, compatible with neuritis. Referred By: EFRA SHINE Interpreted By: Killian Benavides MD, 04/23/2024 8:47 AM Efra Shine MIX MAKER MRI Final Result * XR THOR SPINE+SWIMMERS (04/11/2024 12:00 PM GRAB OPERATOR) Anatomical Region Laterality Modality Spine Radiographic Skyla ging 04/12/2024 8:58 AM GRAB OPERATOR Impressions 04/12/2024 8:59 AM GRAB OPERATOR IMPRESSION: No acute findings. Minimal spondylosis. Ordered By: HARSHAL BRAR Interpreted By: Eric Blankenship MD, 04/12/2024 8:58 AM Narrative 04/12/2024 8:59 AM GRAB OPERATOR [address] [place] [address] Examination: Thoracic spine Exam time: 1130 hours. [...] Procedure Note Eric Blankenship MD - 04/12/[address] [place] [address] Examination: Thoracic spine Exam time: 1130 hours. [...] By: Eric Blankenship MD, 04/12/2024 8:58 AM us Harshal Brar MIX MAKER GENERAL IMAGING Final Result * XR SI JOINTS (04/11/2024 12:00 PM GRAB OPERATOR) Anatomical Region Laterality Modality Pelvis Radiographic Skyla ging 04/12/2024 9:12 AM GRAB OPERATOR Impressions 04/12/2024 9:14 AM GRAB OPERATOR IMPRESSION: No acute findings. Degenerative changes in the hips. Ordered By: HARSHAL BRAR Interpreted By: Eric Blankenship MD, 04/12/2024 9:12 AM Narrative 04/12/2024 9:14 AM GRAB OPERATOR [address] [place] [address] Examination: SI joints. Exam time: 1138 hours. Clinical history: Pain. Sciatica. Comparison: None. Technique: AP and bilateral oblique views. Findings: No fracture or bony destructive process is identified. The SI joints appear intact and symmetric. The pubic symphysis appears intact. There are relatively symmetric hies-hq-pnudqtzk degenerative changes in the hips manifested by joint space narrowing and acetabular osteophyte formation. No other significant bone or joint abnormality is noted. No acute soft tissue abnormality. Procedure Note Eric Blankenship MD - 04/12/[address] [place] [address] Examination: SI joints. Exam time: 1138 hours. Clinical history: Pain. Sciatica. Comparison: None. Technique: AP and bilateral oblique views. Findings: No fracture or bony destructive process is identified. The SIjoints appear intact and symmetric. The pubic symphysis appears intact.There are relatively symmetric qmpz-rq-nvebbgjn degenerative changes inthe hips manifested by joint space narrowing and acetabular osteophyteformation. No other significant bone or joint abnormality is noted. Noacute soft tissue abnormality. IMPRESSION: No acute findings. Degenerative changes in the hips. Ordered By: HARSHAL BRAR Interpreted By: Eric Blankenship MD, 04/12/2024 9:12 AM Harshal Brar MIX MAK[facility] Final Result * XR LUMB SPINE 3V (04/11/2024 12:00 PM GRAB OPERATOR) Anatomical Region Laterality Modality Spine Radiographic Skyla ging 04/12/2024 9:09 AM GRAB OPERATOR Impressions 04/12/2024 9:11 AM GRAB OPERATOR IMPRESSION: No acute findings. Essentially stable spondylosis as described. Ordered By: HARSHAL BRAR Interpreted By: Eric Blankenship MD, 04/12/2024 9:09 AM Narrative 04/12/2024 9:11 AM GRAB OPERATOR [address] [place] [address] Examination: Lumbar spine Exam time: 1131 hours. [...] Procedure Note Eric Blankenship MD - 04/12/2024 [place] [id number] [place] [address] Examination: Lumbar spine Exam time: 1131 hours. [...] Blankenship MD, 04/12/2024 9:09 AM Harshal Brar MIX MAKER GENERAL IMAG[facility] Final Result from Last 3 Months Insurance [facility] Care Teams Bulk Materials Handling Plant Operator Relationship Specialty Start Date End Date Jay Jeffrey MD [address] [place] [address] PCP - General FAMILY PRACTICE 03/06/19 Flores Sweeney MD [address] [place] [address] Consulting Physician INTERVENTIONAL CARDIOLOGY 01/18/22
--- OUTSIDE RECORDS SUMMARY | 2024-05-14 14:06 | XMS_ITS | Encounter Summary ---
Author Organization [facility] Address [facility] [place] [address] Care Team Providers Care Paediatric Surgeon Name Role Phone Jay Jeffrey MD Primary Care Provider [phone] Flores Sweeney MD Unavailable [phone] Encounter Details Date Type Department Care Team (Late st Contact Info) Description 02/10/2022 Hospital Orders Only [facility] Lead Ios Developer Pre/Post [address] [place] [address] Flores Sweeney MD [address] [address] Social History Tobacco Use Types Packs/Day Years Used Date Smoking Tobacco: Former Smokeless Tobacco: Never Comments:quit 15 yrs ago Alcohol Use Standard Drinks/Week Comments Yes 0 (1 standard drink = 0.6 oz pur e alcohol) occasionally Sex and Gender Information Value Date Recorded Sex Assigned at Male 04/11/2024 11:22 AM BINDER LOCKSTITCH Legal Sex Male 8:57 PM BINDER LOCKSTITCH Gender Identity Not on file Sexual Orientation Not on file COVID-19 Exposure Response Date Recorded In the last 10 days, have yo u been in contact with someone who was confirmed or suspected to have Coronavirus/COVID-19? No / Unsure 02/07/2022 10:14 AM BINDER LOCKSTITCH documented as of this encounter Functional Status * RETIRED Are you deaf or do you have serious difficulty hearing Answer Date of Assessment Author Status No 10/15/2019 6:21 AM CDT Activ e documented as of this encounter Plan of Treatment Not on file documented as of this encounter Visit Diagnoses Not on filedocumented in this encounter Additional Health Concerns Infection Onset Date Last Indicated Resolved Time COVID-19 Rule Out 05/21/2023 05/21/2023 05/21/2023 12:15 PM CDT documented as of this encounter Care Teams Paediatric Surgeon Relationship Specialty Start Date End Date Jay Jeffrey MD [address] [place] [id number] PCP - General FAMILY PRACTICE 03/06/19 Flores Sweeney MD [address] [place] [address] Consulting Physician INTERVENTIONAL CARDIOLOGY 01/18/22 documented as of this encounter
--- OUTSIDE RECORDS SUMMARY | 2024-05-14 14:06 | XMS_ITS | Referral Summary ---
Author Organization [facility] Address [address] [place] [phone] Care Team Providers Care Concrete Analyst Name Role Phone Jay Jeffrey MD Primary Care Provider [phone] Solomon Allen MD Unavailable Encounters Date Type Department Care Team Description 05/06/2024 10:00 AM IMCU NURSE - 05/06/2024 11:59 PM IMCU NURSE Hospital Encounter [facility] [address] [place] [id number] Spondylolisthesis of lumbar region; Other spondylosis with radiculopathy, lumbar region Discharge Disposition: Discharge to home or self care 05/06/2024 9:30 AM IMCU NURSE Office Visit [facility] [address] [place] [address] [address], [address] [place] [address] Bert Whitfield PA Lumbar disc herniation with radiculopathy (Primary Dx); Spondylolisthesis of lumbar region; Other spondylosis with radiculopathy, lumbar region 04/23/2024 Ancillary Procedure [facility] 04/11/2024 - 04/11/2024 11:59 PM IMCU NURSE Hospital Encounter [facility] [address] [place] [address] Discharge Disposition: Discharge to home or self care from Last 3 Months Allergies Active Allergy Reactions Criticality Noted Date [...] Date Lumbar disc herniation with radiculopathy 2024 Social History Tobacco Use Types Packs/Day Years Used Date Smoking Tobacco: Never Assessed Sex and Gender Information Value Date Recorded Sex Assigned at Not on file Legal Sex Male 11:00 AM IMCU NURSE Gender Identity Not on file Sexual Orientation Not on file Last Filed Vital Signs Vital Sign Reading Time Taken Comments Blood Pressure 134/94 05/06/2024 9:16 AM IMCU NURSE Pulse 74 05/06/2024 9:16 AM IMCU NURSE Temperature - - Respiratory Rate - - Oxygen Saturation 100% 05/06/2024 9:16 AM IMCU NURSE Inhaled Oxygen Concentration - - Weight 95.5 kg (210 lb 9.6 oz) 05/06/2024 9:16 A M IMCU NURSE Height 182.9 cm (6') 05/06/2024 9:16 AM IMCU NURSE Body Mass Index 28.56 05/06/2024 9:16 AM IMCU NURSE Plan of Treatment Not on file Procedures Procedure Name Priority Date/Time Associated Diagnosis Comments XR LUMBAR SPINE ROUTINE W FLEX EXT Schedule Routine, Read Routine (OP Routine) 05/06/2024 10:16 AM IMCU NURSE Spondylolisthesis of lumbar region Other spondylosis with radiculopathy, lumbar region XR SCOLIOSIS AP LAT Schedule Routine, Read Routine (OP Routine) 05/06/2024 10:16 AM IMCU NURSE Spondylolisthesis of lumbar region Other spondylosis with radiculopathy, lumbar region MSK MR OUTSIDE REFERENCE Routine 04/23/2024 12:00 AM IMCU NURSE MSK MR OUTSIDE REFERENCE Routine 04/11/2024 12:00 AM IMCU NURSE from Last 3 Months Results * XR Spine Lumbar Incl Bending Views 6 or More Views (05/06/2024 10:16 AM IMCU NURSE) Anatomical Region Laterality Modality L-spine N/A Computed Radiogr aphy 05/06/2024 2:58 PM IMCU NURSE Narrative 05/06/2024 3:02 PM IMCU NURSE EXAM DESCRIPTION: XR SCOLIOSIS AP AND LATERAL; [...] by Evan Viveros M.D. T: Report ID: [id number] Reading Location: [id number] Procedure Note Evan Viveros MD - 05/06/2024 [...] by Evan Viveros M.D. T: Report ID: [id number] Reading Location: [id number] us Bert PIERCE IMG XR PROCEDURES Final Re sult * XR Scoliosis 2 or 3 Views (05/06/2024 10:16 AM IMCU NURSE) Anatomical Region Laterality Modality Spine N/A Computed Radiogr aphy 05/06/2024 2:58 PM IMCU NURSE Narrative 05/06/2024 3:02 PM IMCU NURSE EXAM DESCRIPTION: XR SCOLIOSIS AP AND LATERAL; [...] by Evan Viveros M.D. T: Report ID: [id number] Reading Location: [id number] Procedure Note Evan Viveros MD - 05/06/2024 [...] by Evan Viveros M.D. T: Report ID: [id number] Reading Location: [place] [address] Bert PIERCE IMG XR PROCEDURES Final Re sult * MSK MR Outside Reference (04/23/2024 12:00 AM IMCU NURSE) Narrative RAD_PACS_[facility] - 05/06/2024 9:11 AM IMCU NURSE This order has been auto-finalized and does not contain a result. Provider Transcribed Order IMG MRI PROCEDURES Fi nal Result Performing Organization Address [facility] de Phone Number RAD_PACS_[facility] * MSK MR Outside Reference (04/11/2024 12:00 AM IMCU NURSE) Narrative RAD_CLARIO_[facility] - 05/06/2024 8:54 AM IMCU NURSE This order has been auto-finalized and does not contain a result. us Provider Transcribed Order IMG MRI PROCEDURES Fi nal Result Performing Organization Address [facility] de Phone Number RAD_CLARIO_[facility] from Last 3 Months Insurance [employer] OOS Care Teams Concrete Analyst Relationship Specialty Start Date End Date Jay Jeffrey MD [address] [place] [address] PCP - General Family Medicine 05/06/24 [place] [address] [address] Referring Physician Pain Management 05/06/24
--- OUTSIDE RECORDS SUMMARY | 2024-05-14 14:06 | XMS_ITS | Encounter Summary ---
Author Organization [facility] Address [address] [place] [id number] Care Team Providers Care Residential Housekeeper Name Role Phone Jay Jeffrey MD Primary Care Provider Flores Sweeney MD Unavailable Encounter Details Date Type Department Care Team (Late st Contact Info) Description 08/11/2018 Abstract [facility] CONVERSION [address] [place] [id number] , Generic ConversionMD Social History Tobacco Use Types Packs/Day Years Used Date Smoking Tobacco: Never Assessed Sex and Gender Information Value Date Recorded Sex Assigned at Male 04/11/2024 11:22 AM COUNCILOR Legal Sex Male 8:57 PM COUNCILOR Gender Identity Not on file Sexual Orientation [...] documented as of this encounter Care Teams Residential Housekeeper Relationship Specialty Start Date End Date Jay Jeffrey MD [address] [place] [phone] PCP - General FAMILY PRACTICE 03/06/19 [place] [address] Consulting Physician INTERVENTIONAL CARDIOLOGY 01/18/22 documented as of this encounter
--- NOTE | 2024-05-14 14:21 | PC.NURSE ---
Patient being taken down to Ct.
[2024-05-14] MEDS: KETOROLAC 30 MG/ML VIAL (*BKC) IV PUSH (15:04)
--- OUTSIDE RECORDS SUMMARY | 2024-05-14 15:46 | XMS_ITS | Referral Summary ---
Author Organization [facility] Address [address] [place] [phone] Care Team Providers Care Rivet [employer] Name Role Phone Jay Jeffrey MD Primary Care Provider [phone] Solomon Allen MD Unavailable Encounters Date Type Department Care Team Description 05/06/2024 10:00 AM CHARGE MACHINE OPERATOR - 05/06/2024 11:59 PM CHARGE MACHINE OPERATOR Hospital Encounter [facility] Diag Imaging [address] [place] [id number] Spondylolisthesis of lumbar region; Other spondylosis with radiculopathy, lumbar region Discharge Disposition: Discharge to home or self care 05/06/2024 9:30 AM CHARGE MACHINE OPERATOR Office Visit [facility] [address] [place] [address] 3, [address] [place] [address] Bert Whitfield PA Lumbar disc herniation with radiculopathy (Primary Dx); Spondylolisthesis of lumbar region; Other spondylosis with radiculopathy, lumbar region 04/23/2024 Ancillary Procedure [facility] Outside Films 04/11/2024 - 04/11/2024 11:59 PM CHARGE MACHINE OPERATOR Hospital Encounter [facility] [address] [place] [address] Discharge Disposition: Discharge to home or self [...] on file Legal Sex Male 11:00 AM CHARGE MACHINE OPERATOR Gender Identity Not on file Sexual Orientation Not on file Last Filed Vital Signs Vital Sign Reading Time Taken Comments Blood Pressure 134/94 05/06/2024 9:16 AM CHARGE MACHINE OPERATOR Pulse 74 05/06/2024 9:16 AM CHARGE MACHINE OPERATOR Temperature - - Respiratory Rate - - Oxygen Saturation 100% 05/06/2024 9:16 AM CHARGE MACHINE OPERATOR Inhaled Oxygen Concentration - - Weight 95.5 kg (210 lb 9.6 oz) 05/06/2024 9:16 A M CHARGE MACHINE OPERATOR Height 182.9 cm (6') 05/06/2024 9:16 AM CHARGE MACHINE OPERATOR Body Mass Index 28.56 05/06/2024 9:16 AM CHARGE MACHINE OPERATOR Plan of Treatment Not on file Procedures Procedure Name Priority Date/Time Associated Diagnosis Comments XR LUMBAR SPINE ROUTINE W FLEX EXT Schedule Routine, Read Routine (OP Routine) 05/06/2024 10:16 AM CHARGE MACHINE OPERATOR Spondylolisthesis of lumbar region Other spondylosis with radiculopathy, lumbar region XR SCOLIOSIS AP LAT Schedule Routine, Read Routine (OP Routine) 05/06/2024 10:16 AM CHARGE MACHINE OPERATOR Spondylolisthesis of lumbar region Other spondylosis with radiculopathy, lumbar region MSK MR OUTSIDE REFERENCE Routine 04/23/2024 12:00 AM CHARGE MACHINE OPERATOR MSK MR OUTSIDE REFERENCE Routine 04/11/2024 12:00 AM CHARGE MACHINE OPERATOR from Last 3 Months Results * XR Spine Lumbar Incl Bending Views 6 or More Views (05/06/2024 10:16 AM CHARGE MACHINE OPERATOR) Anatomical Region Laterality Modality L-spine N/A Computed Radiogr aphy 05/06/2024 2:58 PM CHARGE MACHINE OPERATOR Narrative 05/06/2024 3:02 PM CHARGE MACHINE OPERATOR EXAM DESCRIPTION: XR SCOLIOSIS AP AND LATERAL; [...] by Evan Viveros M.D. T: Report ID: [id number] Reading Location: [id number] Procedure Note Evan Viveros MD - 05/06/2024 [...] by Evan Viveros M.D. T: Report ID: [id number] Reading Location: [id number] us Bret PIERCE IMG XR PROCEDURES Final Re sult * XR Scoliosis 2 or 3 Views (05/06/2024 10:16 AM CHARGE MACHINE OPERATOR) Anatomical Region Laterality Modality Spine N/A Computed Radiogr aphy 05/06/2024 2:58 PM CHARGE MACHINE OPERATOR Narrative 05/06/2024 3:02 PM CHARGE MACHINE OPERATOR EXAM DESCRIPTION: XR SCOLIOSIS AP AND LATERAL; [...] by Evan Viveros M.D. T: Report ID: [id number] Reading Location: [id number] Procedure Note Evan Viveros MD - 05/06/2024 [...] by Evan Viveros M.D. T: Report ID: [id number] Reading Location: [place] [address] Bert PIERCE IMG XR PROCEDURES Final Re sult * MSK MR Outside Reference (04/23/2024 12:00 AM CHARGE MACHINE OPERATOR) Narrative RAD_PACS_[facility] - 05/06/2024 9:11 AM CHARGE MACHINE OPERATOR This order has been auto-finalized and does not contain a result. Provider Transcribed Order IMG MRI PROCEDURES Fi nal Result Performing Organization Address [facility] de Phone Number RAD_PACS_[facility] * MSK MR Outside Reference (04/11/2024 12:00 AM CHARGE MACHINE OPERATOR) Narrative RAD_CLARIO_[facility] - 05/06/2024 8:54 AM CHARGE MACHINE OPERATOR This order has been auto-finalized and does not contain a result. us Provider Transcribed Order IMG MRI PROCEDURES Fi nal Result Performing Organization Address [facility] de Phone Number RAD_CLARIO_[facility] from Last 3 Months Insurance [employer] OOS Care Teams [employer]et [employer] Relationship Specialty Start Date End Date Jay Jeffrey MD [address] [facility] [place] [address] PCP - General Family Medicine 05/06/24 [place] [address] [address] Referring Physician Pain Management 05/06/24
--- OUTSIDE RECORDS SUMMARY | 2024-05-14 15:46 | XMS_ITS | Clinical Summary ---
Author Organization [facility] Address [address] [place] [address] Care Team Providers Care Press Tool Maker Name Role Phone Jay Jeffrey MD Primary Care Provider [phone] Solomon Allen MD Unavailable Allergies Active Allergy [...] Department Care Team Description 05/06/2024 10:00 AM DIRECTOR CARDIAC - 05/06/2024 11:59 PM DIRECTOR CARDIAC Hospital Encounter [facility] Diag Imaging [address] [place] [address] Spondylolisthesis of lumbar region; Other spondylosis with radiculopathy, lumbar region Discharge Disposition: Discharge to home or self care 05/06/2024 9:30 AM DIRECTOR CARDIAC Office Visit [facility] [address] [place] [address] 3, [address] [place] [address] Bert Whitfield PA Lumbar disc herniation with radiculopathy (Primary Dx); Spondylolisthesis of lumbar region; Other spondylosis with radiculopathy, lumbar region 04/23/2024 Ancillary Procedure [facility] Outside Films 04/11/2024 - 04/11/2024 11:59 PM DIRECTOR CARDIAC Hospital Encounter [facility] [address] [place] [address] Discharge Disposition: Discharge to home or self care from Last 3 Months Surgical History Surgery Date Site/Laterality Comments LUMBAR FUSION 03/06/2013 - 03/05/2014 N/A Medical History Medical History Date Comments Hypertension Social History Tobacco Use Types Packs/Day Years Used Date Smoking Tobacco: Never Assessed Sex and Gender Information Value Date Recorded Sex Assigned at Not on file Legal Sex Male 11:00 AM DIRECTOR CARDIAC Gender Identity Not on file Sexual Orientation Not on file Obstetrics History Last Filed Vital Signs Vital Sign Reading Time Taken Comments Blood Pressure 134/94 05/06/2024 9:16 AM DIRECTOR CARDIAC Pulse 74 05/06/2024 9:16 AM DIRECTOR CARDIAC Temperature - - Respiratory Rate - - Oxygen Saturation 100% 05/06/2024 9:16 AM DIRECTOR CARDIAC Inhaled Oxygen Concentration - - Weight 95.5 kg (210 lb 9.6 oz) 05/06/2024 9:16 A M DIRECTOR CARDIAC Height 182.9 cm (6') 05/06/2024 9:16 AM DIRECTOR CARDIAC Body Mass Index 28.56 05/06/2024 9:16 AM DIRECTOR CARDIAC Plan of Treatment Health Maintenance Due Date [...] Read Routine (OP Routine) 05/06/2024 10:16 AM DIRECTOR CARDIAC Spondylolisthesis of lumbar region Other spondylosis with radiculopathy, lumbar region XR SCOLIOSIS AP LAT Schedule Routine, Read Routine (OP Routine) 05/06/2024 10:16 AM DIRECTOR CARDIAC Spondylolisthesis of lumbar region Other spondylosis with radiculopathy, lumbar region MSK MR OUTSIDE REFERENCE Routine 04/23/2024 12:00 AM DIRECTOR CARDIAC MSK MR OUTSIDE REFERENCE Routine 04/11/2024 12:00 AM DIRECTOR CARDIAC from Last 3 Months Results * XR Spine Lumbar Incl Bending Views 6 or More Views (05/06/2024 10:16 AM DIRECTOR CARDIAC) Anatomical Region Laterality Modality L-spine N/A Computed Radiogr aphy 05/06/2024 2:58 PM DIRECTOR CARDIAC Narrative 05/06/2024 3:02 PM DIRECTOR CARDIAC EXAM DESCRIPTION: XR SCOLIOSIS AP AND LATERAL; [...] by Evan Viveros M.D. T: Report ID: [id number] Reading Location: [id number] Procedure Note Evan Viveros MD - 05/06/2024 [...] signed by Evan FLORES T: Report ID: [id number] Reading Location: [place] [address] us Bert PIERCE IMG XR PROCEDURES Final Re sult * XR Scoliosis 2 or 3 Views (05/06/2024 10:16 AM DIRECTOR CARDIAC) Anatomical Region Laterality Modality Spine N/A Computed Radiogr aphy 05/06/2024 2:58 PM DIRECTOR CARDIAC Narrative 05/06/2024 3:02 PM DIRECTOR CARDIAC EXAM DESCRIPTION: XR SCOLIOSIS AP AND LATERAL; [...] by Evan Viveros M.D. T: Report ID: [id number] Reading Location: [id number] Procedure Note Evan Viveros MD - 05/06/2024 [...] by Evan Viveros M.D. T: Report ID: [id number] Reading Location: [id number] Bert PIERCE IMG XR PROCEDURES Final Re sult * MSK MR Outside Reference (04/23/2024 12:00 AM DIRECTOR CARDIAC) Narrative RAD_PACS_[facility] - 05/06/2024 9:11 AM DIRECTOR CARDIAC This order has been auto-finalized and does not contain a result. us Provider Transcribed Order IMG MRI PROCEDURES Fi nal Result RAD_PACS_[facility] * MSK MR Outside Reference (04/11/2024 12:00 AM DIRECTOR CARDIAC) Narrative RAD_CLARIO_[facility]_M[facility] - 05/06/2024 8:54 AM DIRECTOR CARDIAC This order has been auto-finalized and does not contain a result. us Provider Transcribed Order IMG MRI PROCEDURES Fi nal Result RAD_CLARIO_[facility]_M[facility] from Last 3 Months Insurance [employer] OOS Care Teams Press Tool Maker Relationship Specialty Start Date End Date Jay Jeffrey MD [address] [place] [address] PCP - General Family Medicine 05/06/24 [place] [address] [address] [facility] [address] [place] [address] Referring Physician Pain Management 05/06/24
--- OUTSIDE RECORDS SUMMARY | 2024-05-14 15:46 | XMS_ITS | Encounter Summary ---
Author Organization [facility] Address [facility] [place] [address] Care Team Providers Care Respiratory Director Name Role Phone Jay Jeffrey MD Primary Care Provider Flores Sweeney MD Unavailable [phone] Encounter Details Date Type Department Care Team (Late st Contact Info) Description 02/10/2022 Hospital Orders Only [facility] Head Gauge Unit Operator Pre/Post [address] [place] [address] Flores Sweeney MD [address] [address] Social History Tobacco Use Types Packs/Day Years Used Date Smoking Tobacco: Former Smokeless Tobacco: Never Comments:quit 15 yrs ago Alcohol Use Standard Drinks/Week Comments Yes 0 (1 standard drink = 0.6 oz pur e alcohol) occasionally Sex and Gender Information Value Date Recorded Sex Assigned at Male 04/11/2024 11:22 AM HOUSEKEEPING ASSOCIATE Legal Sex Male 8:57 PM HOUSEKEEPING ASSOCIATE Gender Identity Not on file Sexual Orientation Not on file COVID-19 Exposure Response Date Recorded In the last 10 days, have yo u been in contact with someone who was confirmed or suspected to have Coronavirus/COVID-19? No / Unsure 02/07/2022 10:14 AM HOUSEKEEPING ASSOCIATE documented as of this encounter Functional Status [...] documented as of this encounter Care Teams Respiratory Director Relationship Specialty Start Date End Date Jay Jeffrey MD [address] [place] [place] [phone] PCP - General FAMILY PRACTICE 03/06/19 Flores Sweeney MD [address] [place] [address] [place] [address] Consulting Physician INTERVENTIONAL CARDIOLOGY 01/18/22 documented as of this encounter
--- OUTSIDE RECORDS SUMMARY | 2024-05-14 15:46 | XMS_ITS | Clinical Summary ---
Author Organization [facility] Address [facility] [place] [address] Care Team Providers Care Showroom Executive Director Name Role Phone Jay Jeffrey MD Primary Care Provider [phone] Flores Sweeney MD Unavailable [phone] Allergies Active Allergy Reactions Criticality Noted Date [...] Department Care Team Description 04/23/2024 7:56 AM NAIL WELTER - 04/23/2024 11:59 PM NAIL WELTER Hospital Encounter [facility] [address] [place] [address] Efra Shine, VIRGILIO Discharge Disposition: Home or Self Care (Routine Discharge) 04/23/2024 Travel 04/11/2024 11:24 AM NAIL WELTER - 04/11/2024 11:59 PM NAIL WELTER Hospital Encounter [facility] [address] [place] [address] Harshal Brar, VIRGILIO Discharge Disposition: Home or [...] Sex Assigned at Male 04/11/2024 11:22 AM NAIL WELTER Legal Sex Male 8:57 PM NAIL WELTER Gender Identity Not on file Sexual Orientation [...] this topic Medical Devices Implanted Type Area Shot Core Drill Operator Helper Device Identifier Shelf Expiration Date Model / Serial / Lot 2.4mm/2.7mm Va Lcp First Mtp Fusion Plate Implanted:Qty: 1 on 10/15/2019 by Otf Kim DPM at [facility] Left: Foot SYNTHES .231 / / NA Screw Synthes 2.7 Va Locking S/Tap T8 14mm - [id number] Implanted:Qty: 2 on 10/15/2019 by Otf Kim DPM at [facility] Left: Foot SYNTHES .014 / / NA Screw Synthes 2.7 Va Locking S/Tap T8 18mm - [id number] Implanted:Qty: 3 on 10/15/2019 by Otf Kim DPM at [facility] Left: Foot SYNTHES .018 / / NA Screw Synthes 2.7 Va Locking S/Tap T8 12mm - [id number] Implanted:Qty: 1 on 10/15/2019 by Otf Kim DPM at [facility] Left: Foot SYNTHES .012 / / NA Screw Synthes 2.7 Cortical Self Tap 26mm - [id number] Implanted:Qty: 1 on 10/15/2019 by Otf Kim DPM at [facility] Left: Foot SYNTHES 202.886 / / NA Explanted Type Area Shot Core Drill Operator Helper Device Identifier Shelf Expiration Date Model / Serial / Lot Wire Synthes 1.6 Compression 15mm X 150mm - [id number] Explanted:Qty: 1 on 10/15/2019 at [facility] Left: Foot SYNTHES .415 / / NA Wire Synthes 1.6 Compression 20mm X 150mm - [id number] Explanted:Qty: 1 on 10/15/2019 at [facility] Left: Foot SYNTHES .420 / / NA Drill Bit Synthes 2.0 Qc 140mm - [id number] Explanted:Qty: 1 on 10/15/2019 by Otf Kim DPM at [facility] Left: Foot SYNTHES 323.062 / / NA Procedures Procedure Name Priority Date/Time Associated Diagnosis Comments MRI LUMB SPINE WO CON Routine 04/23/2024 8:33 AM NAIL WELTER Lumbago XR THOR SPINE+SWIMMERS Routine 04/11/2024 12:00 PM NAIL WELTER Sciatica XR SI JOINTS Routine 04/11/2024 12:00 PM NAIL WELTER Sciatica XR LUMB SPINE 3V Routine 04/11/2024 12:0 0 PM NAIL WELTER Sciatica from Last 3 Months Results * MRI LUMB SPINE WO CON (04/23/2024 8:33 AM NAIL WELTER) Anatomical Region Laterality Modality Spine Magnetic Resonan ce 04/23/2024 8:47 AM NAIL WELTER Impressions 04/23/2024 8:54 AM NAIL WELTER IMPRESSION: 1. At the L2/L3 level there [...] 04/23/2024 8:47 AM Narrative 04/23/2024 8:54 AM NAIL WELTER [address] [place] [address] EXAMINATION:MRI of the lumbar spine without contrast [...] Procedure Note Killian Benavides MD - 04/23/2024 [facility] [address] [place] [address] EXAMINATION:MRI of the lumbar spine without contrast [...] recess with contact of the traversing left Y2lfocr root, similar to the prior MRI. There is enlargement of thetraversing left S1 nerve root within the left lateral recess at thislevel, new compared to the prior MRI 2014, compatible with neuritis. Referred By: EFRA SHINE Interpreted By: Killian Benavides MD, 04/23/2024 8:47 AM Efra Shine CHILD CARE MRI Final Result * XR THOR SPINE+SWIMMERS (04/11/2024 12:00 PM NAIL WELTER) Anatomical Region Laterality Modality Spine Radiographic Skyla ging 04/12/2024 8:58 AM NAIL WELTER Impressions 04/12/2024 8:59 AM NAIL WELTER IMPRESSION: No acute findings. Minimal spondylosis. Ordered By: HARSHAL BRAR Interpreted By: Eric Blankenship MD, 04/12/2024 8:58 AM Narrative 04/12/2024 8:59 AM NAIL WELTER [address] [place] [address] Examination: Thoracic spine Exam time: 1130 hours. [...] Procedure Note Eric Blankenship MD - 04/12/[address] [place] [address] Examination: Thoracic spine Exam time: 1130 hours. [...] MD, 04/12/2024 8:58 AM us Harshal Brar [facility] GENERAL IMAGING Final Result * XR SI JOINTS (04/11/2024 12:00 PM NAIL WELTER) Anatomical Region Laterality Modality Pelvis Radiographic Skyla ging 04/12/2024 9:12 AM NAIL WELTER Impressions 04/12/2024 9:14 AM NAIL WELTER IMPRESSION: No acute findings. Degenerative changes in the hips. Ordered By: HARSHAL BRAR Interpreted By: Eric Blankenship MD, 04/12/2024 9:12 AM Narrative 04/12/2024 9:14 AM NAIL WELTER [address] [place] [address] Examination: SI joints. Exam time: 1138 hours. Clinical history: Pain. Sciatica. Comparison: None. Technique: AP and bilateral oblique views. Findings: No fracture or bony destructive process is identified. The SI joints appear intact and symmetric. The pubic symphysis appears intact. There are relatively symmetric gddh-hk-noaqoeag degenerative changes in the hips manifested by joint space narrowing and acetabular osteophyte formation. No other significant bone or joint abnormality is noted. No acute soft tissue abnormality. Procedure Note Eric Blankenship MD - 04/12/[address] [place] [address] Examination: SI joints. Exam time: 1138 hours. Clinical history: Pain. Sciatica. Comparison: None. Technique: AP and bilateral oblique views. Findings: No fracture or bony destructive process is identified. The SIjoints appear intact and symmetric. The pubic symphysis appears intact.There are relatively symmetric fifk-ye-qhlkhapw degenerative changes inthe hips manifested by joint space narrowing and acetabular osteophyteformation. No other significant bone or joint abnormality is noted. Noacute soft tissue abnormality. IMPRESSION: No acute findings. Degenerative changes in the hips. Ordered By: HARSHAL BRAR Interpreted By: Eric Blankenship MD, 04/12/2024 9:12 AM Harshal Brar [facility] GENERAL IMAGING Final Result * XR LUMB SPINE 3V (04/11/2024 12:00 PM NAIL WELTER) Anatomical Region Laterality Modality Spine Radiographic Skyla ging 04/12/2024 9:09 AM NAIL WELTER Impressions 04/12/2024 9:11 AM NAIL WELTER IMPRESSION: No acute findings. Essentially stable spondylosis as described. Ordered By: HARSHAL BRAR Interpreted By: Eric Blankenship MD, 04/12/2024 9:09 AM Narrative 04/12/2024 9:11 AM NAIL WELTER [address] [place] [address] Examination: Lumbar spine Exam time: 1131 hours. [...] Procedure Note Eric Blankenship MD - 04/12/2024 [place] [address] [place] [address] Examination: Lumbar spine Exam time: 1131 hours. [...] Blankenship MD, 04/12/2024 9:09 AM Harshal Brar [facility]AG[facility] Final Result from Last 3 Months Insurance [facility] Care Teams Showroom Executive Director Relationship Specialty Start Date End Date Jay Jeffrey MD [address] [place] [address] PCP - General FAMILY PRACTICE 03/06/19 Flores Sweeney MD [address] [place] [address] Consulting Physician INTERVENTIONAL CARDIOLOGY 01/18/22
--- OUTSIDE RECORDS SUMMARY | 2024-05-14 15:46 | XMS_ITS | Encounter Summary ---
Author Organization [facility] Address [address] [place] [address] Care Team Providers Care Senior Net Engineer Name Role Phone Jay Jeffrey MD Primary Care Provider Flores Sweeney MD Unavailable [phone] Encounter Details Date Type Department Care Team (Late st Contact Info) Description 08/11/2018 Abstract [facility] CONVERSION [address] [place] [id number] , Generic ConversionMD Social History Tobacco Use Types Packs/Day Years Used Date Smoking Tobacco: Never Assessed Sex and Gender Information Value Date Recorded Sex Assigned at Male 04/11/2024 11:22 AM CELL TUBER HAND Legal Sex Male 8:57 PM CELL TUBER HAND Gender Identity Not on file Sexual Orientation [...] documented as of this encounter Care Teams Senior Net Engineer Relationship Specialty Start Date End Date Jay Jeffrey MD [address] [place] [phone] PCP - General FAMILY PRACTICE 03/06/19 [place] [phone] Consulting Physician INTERVENTIONAL CARDIOLOGY 01/18/22 documented as of this encounter
== END 2024-05-14 15:20 | disposition home or self-care (01) ==
PROVIDERS: Emergency Provider Emergency Medicine; PCP Family Medicine
DX: K52.9 Noninfective gastroenteritis and colitis, unspecified (principal); Z20.822 Contact with and (suspected) exposure to COVID-19
CPT/HCPCS: 36415; 74177; 80053; 82948; 83690; 85025; 87637; 96361; 96374; 96375; 99284; J1885; J2405; J7030; Q9967

== ENCOUNTER 2025-02-11 09:47 | Outpatient (CLI) | payer BC, SELFPAY ==
--- NOTE | ~2025-02-11 | CT_ITS ---
EXAM/PROCEDURE: CT sinus wo con HISTORY: Chronic sinusitis x years COMPARISON: None available. TECHNIQUE: Paranasal sinus CT FINDINGS: Mild mucoperiosteal thickening present in the dependent portions of both maxillary sinuses. 1.3 x 0.8 cm right maxillary sinus mucocele or mucous retention cyst. Partial aspiration of the ethmoid air cells. Frontal and sphenoid sinuses are fully aerated. No air-fluid level. Both ostiomeatal complexes are patent. Slight septal deviation to the left with moderate-sized spur along the left margin of the mid septum. The turbinates appear within normal limits. Bones soft tissues about the sinuses appear intact. IMPRESSION: Mild paranasal sinus disease with no evidence of significant occlusion/obstruction of the ostiomeatal complexes or air-fluid level to confirm acute sinusitis. Small right maxillary sinus mucocele or mucous retention cyst. Reviewed, dictated and finalized at location A. COUNSELOR IMPRESSION: Mild paranasal sinus disease with no evidence of significant occlusion/obstruct ion of the ostiomeatal complexes or air-fluid level to confirm acute sinusitis. Small right maxillary sinus mucocele or mucous retention cyst.
== END 2025-02-11 09:48 | disposition home or self-care (01) ==
LOC: MICIMG 09:48
PROVIDERS: PCP Family Medicine; Visit Provider Otolaryngology
DX: J34.1 Cyst and mucocele of nose and nasal sinus (principal); J32.9 Chronic sinusitis, unspecified
CPT/HCPCS: 70486